=== PATIENT | female | born 1940 | race Caucasian/White ===

== ENCOUNTER 2025-02-15 11:18 | Emergency (ER) | payer MEDICARE, OTHER ==
[~2025-02-15] VITALS: Ht 160 cm; Wt 47.7 kg
--- NOTE | 2025-02-15 12:03 | ED.PDOC ---
Musculoskeletal HPI Comments 84-year-old female presents here status post fall. Patient states she was standing on a food tray stand and fell backwards. She states she has a known history of balance issues and falls perpetually. Was not dizzy. Denies any chest pain or shortness of breath. She did not lose consciousness. She is not on blood thinners. She reports mild headache but states that started before the fall due to sinusitis use currently being treated for. Denies any new headache from the fall. Denies any neck or back pain. She does state however since the fall she has been unable to bear weight on her left leg. She states when she tries to take a step she is unable to do so and collapses down. Denies pain to that left side. Denies any fever or chills. No recent cough cold runny nose. Patient lives with her niece and calvin hopkins who has a crane helper. Chief Complaint: Fall Injury Time Seen by MD: 11:36 Reviewed Notes: Nurses Notes, Medications, Allergies Allergies: Coded Allergies: NO KNOWN ALLERGIES (Unverified , 02/15/25) Mode of Arrival: Wheelchair Past Medical History Past Medical History (Other): Dementia, glaucoma hypertension Social History Smoker: Non-Smoker Alcohol: Denies ETOH Use Drugs: Denies Drug Use Lives In: Home All Other Systems: Reviewed and Negative Physical Exam General Appearance: No Apparent Distress, Normal, Thin HEENT: Normal ENT Inspection, Pharynx Normal, TMs Normal Neck: Full Range of Motion, Non-Tender, Normal, Normal Inspection Respiratory: Chest Non-Tender, Lungs Clear, No Accessory Muscle Use, No Respiratory Distress, Normal Breath Sounds Cardiovascular: No Edema, No JVD, No Murmur, No Gallop, Normal Peripheral Pulses, Regular Rate/Rhythm Breast Exam: Deferred Gastrointestinal: No Organomegaly, Non Tender, No Pulsatile Mass, Normal Bowel Sounds, Soft Genitalia: Deferred Pelvic: Deferred Rectal: Deferred Extremities: Decreased range of motion, No calf tenderness, Normal capillary refill, Normal inspection, Other (No deformity visualized. Nontender to left hip. However patient is unable to stand to bear weight. Sitting in wheelchair) Musculoskeletal : Apperance: Normal Neurologic: Alert, No Motor Deficits, Normal Affect, Normal Mood, No Sensory Deficits Cerebellar Function: Normal Reflexes: Normal Skin: Dry, Normal Color, Warm Lymphatic: No Adenopathy Was a procedure done? Was a procedure done?: No Differential Diagnosis EXT Differential Diagnosis: Fracture, Sprain, Dislocation, Contusion, Strain, Neurovascular injury Other Differential Diagnosis Intracranial hemorrhage, electrolyte abnormality, UTI X-Ray, Labs, Meds, VS Vital Signs Date Time Temp Pulse Resp B/P (MAP) Pulse Ox O2 Delivery O2 Flow Rate FiO2 02/15/25 13:59 98.2 88 18 124/62 (82) 99 98.2 02/15/25 13:59 88 18 99 Room Air 02/15/25 11:20 97.8 88 16 124/51 (75) 97 97.8 Lab Test 02/15/25 12:50 Range/Units White Blood Count 9.7 4.4-10.8 10^3/uL Red Blood Count 4.18 4.0-5.20 10^6/uL Hemoglobin 12.5 12.2-16.2 g/dL Hematocrit 37.5 36.0-46.0 % Mean Corpuscular Volume 89.7 80.0-100.0 fL Mean Corpuscular Hemoglobin 30.0 28.0-32.0 pg Mean Corpuscular Hemoglobin Concent 33.5 32.0-36.0 g/dL Red Cell Distribution Width 13.7 11.8-14.3 % Platelet Count 444 140-450 10^3/uL Mean Platelet Volume 7.8 6.9-10.8 fL Neutrophils (%) (Auto) 79.2 37.0-80.0 % Lymphocytes (%) (Auto) 14.5 10.0-50.0 % Monocytes (%) (Auto) 5.1 0.0-12.0 % Eosinophils (%) (Auto) 0.8 0.0-7.0 % Basophils (%) (Auto) 0.4 0.0-2.0 % Neutrophils # (Auto) 7.6 1.6-8.6 10 ^3/uL Lymphocytes # (Auto) 1.4 0.4-5.4 10 ^3/uL Monocytes # (Auto) 0.5 0-1.3 10 ^3/uL Eosinophils # (Auto) 0.1 0-0.8 10 ^3/uL Basophils # (Auto) 0 0-0.2 10 ^3/uL Nucleated Red Blood Cells 0.0 % Sodium Level 141 136-145 mmol/L Potassium Level 4.2 3.5-5.1 mmol/L Chloride Level 107 98-107 mmol/L Carbon Dioxide Level 25 20-31 mmol/L Anion Gap 9 5-15 Blood Urea Nitrogen 20 9-23 mg/dL Creatinine 1.13 H 0.550-1.02 mg/dL Glomerular Filtration Rate Calc 48 >90 mL/min BUN/Creatinine Ratio 17.7 10.0-20.0 Serum Glucose 92 74-106 mg/dL Calcium Level 10.0 8.7-10.4 mg/dL [place] [id number] Ph: [phone] DIAGNOSTIC IMAGING Diagnostic Imaging Report : [id number] Signed PATIENT: LAXMI REVELES ACCT: [id number] UNIT: [id number] : 1940 LOC: ER ROOM / BED: / AGE / SEX: 84 / F ADM STATUS: REG ER SERVICE [id number] ORDERING PHYSICIAN: MARSHALL OSBORNE MD PROCEDURE(s): LFEM - L FEMUR XRAY REASON: Rule out fracture ORDER NUMBER(s): [id number], ACCESSION NUMBER(s): [id number] Indication: Rule out fracture Technique: XY L FEMUR XRAY, XY L HIP COMPLETE XRAYXY Comparison: None FINDINGS/IMPRESSION: Possible fracture of the left femur greater trochanter / intertrochanteric region. Recommend CT of the left hip to evaluate. Severe degenerative changes of the left knee. Left knee chondrocalcinosis. Moderate degenerate changes bilateral hips. Severe lower lumbar degenerative disc disease and sclerotic changes. Correlate to exclude osteoblastic metastases. Moderate bilateral sacroiliac degenerative joint disease. Atherosclerotic disease. ATED BY: CELIA PIZANO MD DICTATED DATE/TIME: 02/15/25 1302 SIGNED BY: CELIA PIZANO MD SIGNED DATE/TIME: 02/15/25 1302 CC: 84-year-old female here status post fall. She states she has a history of frequent falls as she has a history of unbalance. Considered possible intracranial hemorrhage however I doubt at this time as she denies any headache, no nausea no new headache. X-ray of the left hip and left femur has been ordered including a CT of the hip as I suspect there may be a small fracture. X-ray demonstrates possible fracture of the left femur greater trochanteric/intertrochanteric region. CT hip does not demonstrate fracture. However patient is unable to bear weight so I suspect that are likely has a small fracture. At this time hospitalist team has been contacted for admission and potentially orthopedic eval Time of 1ST Reevaluation: 12:14 Reevaluation 1ST: Unchanged Patient Education/Counseling: Diagnosis, Treatment Family Education/Counseling: No Family Present Departure 1 Departure Time of Disposition: 14:45 Impression: Primary Impression: Femur fracture, left Qualified Codes: S72.92XA - Unspecified fracture of left femur, initial encounter for closed fracture Disposition: ADMITTED INPATIENT Condition: Stable Critical Care Note Critical Care Time?: No Stability Stability form required: No Heart Score Heart Score: Heart Score Response (Comments) Value History N/A 0 EKG N/A 0 Age N/A 0 Risk Factors N/A 0 Troponin N/A 0 Total 0 MARSHALL OSBORNE MD Feb 15, 2025 12:03
--- NOTE | 2025-02-15 12:47 | DVH ---
EXAM: CT CT L HIP WITH OUT CONTRAST HISTORY: Rule out fracture COMPARISON: None TECHNIQUE: Noncontrast axial CT images of the left hip were performed. Sagittal and coronal reformatt ed images were obtained. This CT exam was performed using one or more of the following dose reduction techniques: Automated exposure control, adjustment of the mA and/or kV according to patient size, or use of iterative reconstruction technique. Radiation Dose Information: CT Dose: CTDI volume is 7.14 mGy. Dose-length product is 182.05 mGy*cm. FINDINGS: No acute fracture is identified about the left hip. [id number] osteoarthrosis of the left hip j oint. IMPRESSION: 1. No acute fracture of the left hip. 2. [id number]-[id number] osteoarthrosis of the left hip
--- NOTE | 2025-02-15 13:04 | DVH ---
Indication: Rule out fracture Technique: XY L HIP COMPLETE XRAYXY Comparison: None FINDINGS/IMPRESSION: Possible fracture of the left femur greater trochanter / intertrochanteric region. Recommend CT of t he left hip to evaluate. Severe degenerative changes of the left knee. Left knee chondrocalcinosis. Moderate degenerate changes bilateral hips. Severe lower lumbar degenerative disc disease and sclerotic changes. Correlate to exclude osteoblasti c metastases. Moderate bilateral sacroiliac degenerative joint disease. Atherosclerotic disease.
--- NOTE | 2025-02-15 13:04 | DVH ---
Indication: Rule out fracture Technique: XY L FEMUR XRAY, XY L HIP COMPLETE XRAYXY Comparison: None FINDINGS/IMPRESSION: Possible fracture of the left femur greater trochanter / intertrochanteric region. Recommend CT of t he left hip to evaluate. Severe degenerative changes of the left knee. Left knee chondrocalcinosis. Moderate degenerate changes bilateral hips. Severe lower lumbar degenerative disc disease and sclerotic changes. Correlate to exclude osteoblasti c metastases. Moderate bilateral sacroiliac degenerative joint disease. Atherosclerotic disease.
[2025-02-15 13:24] LABS: Hematocrit 37.5 % (36.0-46.0); Hemoglobin 12.5 g/dL (12.2-16.2); Mean Corpuscular Hemoglobin 30.0 pg (28.0-32.0); Mean Corpuscular Volume 89.7 fL (80.0-100.0); Nucleated Red Blood Cells % 0.0 %
[2025-02-15 13:59] VITALS: BP 124/62; PULSE 88; RESP 18; TEMP 98.2; O2SAT 99
[2025-02-15 14:11] LABS: Chloride 107 mmol/L (98-107); Potassium 4.2 mmol/L (3.5-5.1); Sodium 141 mmol/L (136-145)
[2025-02-15 14:12] LABS: Anion Gap 9 (5-15); Carbon Dioxide 25 mmol/L (20-31)
[2025-02-15 14:13] LABS: Calcium 10.0 mg/dL (8.7-10.4)
[2025-02-15 14:17] LABS: BUN/Creatinine Ratio 17.7 (10.0-20.0); Blood Urea Nitrogen 20 mg/dL (9-23); Glucose 92 mg/dL (74-106)
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
== END 2025-02-15 15:16 | disposition left against medical advice (07) ==
LOC: ER 11:18
DX: S72.8X2A Other fracture of left femur, initial encounter for closed fracture (principal); I10 Essential (primary) hypertension; F03.90 Unspecified dementia, unspecified severity, without behavioral disturbance, psychotic disturbance, mood disturbance, and anxiety; H40.9 Unspecified glaucoma; W18.39XA Other fall on same level, initial encounter; Y93.89 Activity, other specified; Y92.89 Other specified places as the place of occurrence of the external cause; Y99.8 Other external cause status
CPT/HCPCS: 36415; 73502; 73700; 80048; 85025

== ENCOUNTER 2025-02-18 09:00 | Inpatient (IN) | payer MEDICARE ==
[~2025-02-18] VITALS: Ht 162.6 cm; Wt 50.0 kg
--- NOTE | 2025-02-18 09:44 | ED.PDOC ---
Lindsey. trauma (HPI) HPI Comments 84 y/o F, presents to the ED for CC of s/p fall injury. Patient states, that she suffered a fall approximately x1 week ago on Monday (02/09/25) and has since, been unable to bear weight onto her left side. Patient reports, being seen at [facility] on Monday (02/15/25) and all imagining coming back unremarkable then being admitted for a further testing; ultimately patient endorsed leaving AMA. Patient denies any pain, numbness, or tingling. No other symptoms or modifying factors present at this time. Chief Complaint: Fall Injury Time Seen by MD: 09:30 Primary Care Provider: Nathen Nunn notes: Nurses Notes, Medications, Allergies Allergies: Coded Allergies: NO KNOWN ALLERGIES (Unverified , 02/15/25) Information Source: Patient Mode of Arrival: Wheelchair Severity: Moderate Timing: Days Duration: Since onset Prehospital treatment: None Location: (L) Hip, (L) Leg Location of laceration: None Mechanism: Fall Associated signs and symtoms: None Past Medical History PAST MEDICAL HISTORY: Denies Surgical History: Denies all surgeries CLINICAL PHARMACIST History: Denies all CLINICAL PHARMACIST Hx Family History Family History: Unknown Social History Smoker: Non-Smoker Alcohol: Denies ETOH Use Drugs: Denies Drug Use Lives In: Home Constitutional: denies: chills, diaphoresis, fatigue, fever, malaise, sweats, weakness, others EENTM: denies: blurred vision, double vision, ear bleeding, ear discharge, ear drainage, ear pain, ear ringing, eye pain, eye redness, hearing loss, mouth pain, mouth swelling, nasal discharge, nose bleeding, nose congestion, nose pain, photophobia, tearing, throat pain, throat swelling, voice changes, others Respiratory: denies: cough, hemoptysis, orthopnea, SOB at rest, shortness of breath, SOB with excertion, stridor, wheezing, others Cardiovascular: denies: chest pain, dizzy spells, diaphoresis, Dyspnea on exertion, edema, irregular heart beat, left arm pain, lightheadedness, palpitations, PND, syncope, others Gastrointestinal: denies: abdomen distended, abdominal pain, blood streaked bowels, constipated, diarrhea, dysphagia, difficulty swallowing, hematemesis, melena, nausea, poor appetite, poor fluid intake, rectal bleeding, rectal pain, vomiting, others Genitourinary: denies: abnormal vagina bleeding, burning, dyspareunia, dysuria, flank pain, frequency, hematuria, incontinence, pain, , vagina discharge, urgency, others Neurological: denies: dizziness, fainting, headache, left sided numbness, left sided weakness, numbness, paresthesia, pre-existing deficit, right sided numbness, right sided weakness, seizure, speech problems, tingling, tremors, weakness, others Musculoskeletal: denies: back pain, gout, joint pain, joint swelling, muscle pain, muscle stiffness, neck pain, others Integumetry: denies: bruises, change in color, change in hair/nails, dryness, laceration, lesions, lumps, rash, wounds, others Allergic/Immunocompromised: denies: Difficulty Healing, Frequent Infections, Hives, Itching, others Hematologic/Lymphatic: denies: anemia, blood clots, easy bleeding, easy bruising, swollen glands, others Endocrine: denies: excessive hunger, excessive sweating, excessive thirst, excessive urination, flushing, intolerance to cold, intolerance to heat, unexplained weight gain, unexplained weight loss, others Psychiatric: denies: anxiety, bipolar disorder, depression, hopeless, panic disorder, schizophrenia, sleepless, suicidal, others All Other Systems: Reviewed and Negative Physical Exam General Appearance: No Apparent Distress, Normal HEENT: Normal ENT Inspection, Pharynx Normal, TMs Normal Neck: Full Range of Motion, Non-Tender, Normal, Normal Inspection Respiratory: Chest Non-Tender, Lungs Clear, No Accessory Muscle Use, No Respiratory Distress, Normal Breath Sounds Cardiovascular: No Edema, No Murmur, No Gallop, Normal Peripheral Pulses, Regular Rate/Rhythm Breast Exam: Deferred Gastrointestinal: No Organomegaly, Non Tender, No Pulsatile Mass, Normal Bowel Sounds, Soft Genitalia: Deferred Pelvic: Deferred Rectal: Deferred Extremities: No calf tenderness, Normal capillary refill, Normal inspection, Normal range of motion, Non-tender, No pedal edema Musculoskeletal : Apperance: Normal Neurologic: Alert, subscription crew leader II-XII nml as Tested, No Motor Deficits, Normal Affect, Normal Mood, No Sensory Deficits Cerebellar Function: Normal Reflexes: Normal Skin: Dry, Normal Color, Warm Lymphatic: No Adenopathy Was a procedure done? Was a procedure done?: No Differential Diagnosis Multiple Trauma: Fractures X-Ray, Labs, Meds, VS Vital Signs Date Time Temp Pulse Resp B/P (MAP) Pulse Ox O2 Delivery O2 Flow Rate FiO2 02/18/25 09:56 97.7 63 16 115/68 (84) 96 97.7 02/18/25 09:56 68 16 96 Room Air 02/18/25 09:20 98.8 83 16 133/76 (95) 96 98.8 [place] [address] Ph: [phone] DIAGNOSTIC IMAGING Diagnostic Imaging Report : [id number] Signed PATIENT: LAXMI REVELESCCT: [id number] UNIT: [id number] : 1940 LOC: ER ROOM / BED: / AGE / SEX: 84 / F ADM STATUS: REG ER SERVICE [id number] ORDERING PHYSICIAN: VICKY YADAV MD PROCEDURE(s): LHIP1 - L HIP 1V XRAY REASON: unable to bare weight ORDER NUMBER(s): [id number], ACCESSION NUMBER(s): [id number] CLINICAL INDICATION: Pain TECHNIQUE: 1 radiographic views of the left hip were obtained. Comparison: 02/15/2025 FINDINGS/IMPRESSION: There is no evidence of acute fracture or dislocation. Moderate osteoarthrosis of the left femoroacetabular joint. ATED BY: KIMMIE MENDEZ MD DICTATED DATE/TIME: 02/18/25 1023 SIGNED BY: KIMMIE MENDEZ MD SIGNED DATE/TIME: 02/18/25 1023 CC: Time of 1ST Reevaluation: 10:00 Reevaluation 1ST: Unchanged Patient Education/Counseling: Diagnosis, Treatment Family Education/Counseling: No Family Present Departure 1 Departure Time of Disposition: 12:52 (Patient was recently seen here with left hip pain inability to bear weight. Patient had recent CT scan which was negative. Patient can follow up and ambulate. We will admit patient for further workup and expert consultation) Impression: Primary Impression: Left hip pain Additional Impression: Inability to bear weight Disposition: ADMITTED INPATIENT Admit to: Med Surg Condition: Serious Critical Care Note Critical Care Time?: No Stability Stability form required: No Heart Score Heart Score: Heart Score Response (Comments) Value History N/A 0 EKG N/A 0 Age N/A 0 Risk Factors N/A 0 Troponin N/A 0 Total 0 I personally scribed for VICKY YADAV MD ([email or web address]) on 02/18/25 at 09:44. Electronically submitted by Shelly Santiago ([email or web address]). I personally scribed for VICKY YADAV MD ([email or web address]) on 02/18/25 at 11:33. Electronically submitted by Shelly Santiago ([email or web address]). VICKY YADAV MD Feb 18, 2025 09:44
--- NOTE | 2025-02-18 10:26 | DVH ---
CLINICAL INDICATION: Pain TECHNIQUE: 1 radiographic views of the left hip were obtained. Comparison: 02/15/2025 FINDINGS/IMPRESSION: There is no evidence of acute fracture or dislocation. Moderate osteoarthrosis of the left femoroacetabular joint.
[2025-02-18 13:28] LABS: Nucleated Red Blood Cells % 0.0 %
[2025-02-18 13:29] LABS: Hematocrit 37.7 % (36.0-46.0); Hemoglobin 12.8 g/dL (12.2-16.2); Mean Corpuscular Hemoglobin 30.4 pg (28.0-32.0); Mean Corpuscular Volume 89.8 fL (80.0-100.0)
[2025-02-18 13:35] LABS: Chloride 106 mmol/L (98-107); Potassium 4.4 mmol/L (3.5-5.1); Sodium 140 mmol/L (136-145)
[2025-02-18 13:36] LABS: Anion Gap 8 (5-15); Carbon Dioxide 26 mmol/L (20-31)
[2025-02-18 13:37] LABS: Calcium 9.5 mg/dL (8.7-10.4)
[2025-02-18 13:41] LABS: BUN/Creatinine Ratio 21.7 (10.0-20.0); Glucose 96 mg/dL (74-106)
[2025-02-18 13:42] LABS: Blood Urea Nitrogen 23 mg/dL (9-23)
[2025-02-18] MEDS ORDERED: NITROGLYCERIN 0.4 MG SL TAB SL PRN (15:30)
[2025-02-18] MEDS ORDERED: DOCUSATE SOD 100 MG CAP PO PRN (15:30)
[2025-02-18] MEDS ORDERED: ONDANSETRON HCL 4 MG/2 ML VIAL IV PRN (15:30)
[2025-02-18] MEDS ORDERED: MORPHINE SULFATE INJ 2 MG/ml SYRG IV PRN (15:30)
--- NOTE | 2025-02-18 16:27 | DVH ---
CT LS SPINE WO CONTRAST Indication: eval and low back pain EXAM DATE: 02/18/2025 03:17 PM COMPARISON: None TECHNIQUE: CT of the lumbar spine without intravenous contrast. RADIATION DOSE: CTDIvol: 286.55 mGy, DLP: 18.98 mGy*cm FINDINGS: The lumbar vertebral body heights are maintained. Severe multilevel disc space narrowing and vacuum disc phenomena. Ankylosis of the L5 and S1 vertebral bodies. Lumbar dextroscoliosis. Aortic atherosclerotic disease and tortuosity. Colonic diverticular disease. At L1-2, there is moderate right neural foraminal stenosis. At L2-3, there is moderate bilateral neural foraminal stenosis. At L3-4 there is moderate to severe left and ozab-id-[id number] right neural foraminal stenosis. Mild-t o-moderate spinal canal stenosis. At L4-5, there is moderate to severe bilateral neural foraminal stenosis.m moderate spinal canal sten osis. At L5-S1 moderate to severe left and moderate right neural foraminal stenosis. Mild spinal canal sten osis. IMPRESSION: Severe lumbar degenerative disc disease and lumbar dextroscoliosis. Multilevel neural foraminal and spinal canal stenosis as described above which can be further charact erized with MRI lumbar spine. 5
--- NOTE | 2025-02-18 16:44 | DVHHP2 ---
History of Present Illness Reason for Visit: hip pain History of Present Illness 84 yr old female pmh dementia, glaucoma, and hypertension who presents to the ED with inability to bear weight on the left leg since her fall on 02/15/25. at the time of the fall "Patient states that she was standing at home and was closing up a food tray when she fell backwards and hit the back of her head without losing any consciousness. She states that she lives at home with her niece who is her caregiver". According to patient patient states despite being seen and treated here on February 15, 2025 she continues to have persistent pain in her left hip she states she had a fall recently last one was two days ago. Patient s tates she is not able to bear weight on her leg. Patient denies any chest pain no shortness with the breath. She states she is voiding without difficulty no issues with having bowel movements. When evaluating patient's labs and imaging CBC was unremarkable CMP unremarkable just shows mild elevation creatinine x- rays of the hip shows osteoarthritis reviewed CT scan from February 15, 2025 which was no fracture just shows arthritis it appears on that time patient also left AMA. With these findings we will admit and ask for Physical therapy evaluation we will add CT scan of the L-spine since patient with the pain in her left groin area. Patient to be admitted for pain management Past Medical History Dementia glaucoma htn Past Surgical History See HPI above Family History Reviewed, non-contributory to the management of this case. Past Social History The patient lives at home, denies smoking, alcohol or illicit drugs abuse. Review of Systems Constitutional: No: Fever, Chills, Sweats, Weakness, Malaise, Other Eyes: No: Pain, Vision change, Conjunctivae inflammation, Eyelid inflammation, Other, Redness ENT: No: Ear pain, Ear discharge, Nose pain, Nose discharge, Nose congestion, Mouth pain, Mouth swelling, Throat pain, Throat swelling, Other Respiratory: No: Cough, Dry, Shortness of breath, SOB with excertion, Wheezing, Hemoptysis, Pleuritic Pain, Sputum, Wheezing, Other Cardiovascular: No: Chest Pain, Palpitations, Orthopnea, Paroxysmal Noc. Dyspnea, Edema, Lt Headedness, Other Gastrointestinal: No: Nausea, Vomiting, Abdominal Pain, Diarrhea, Constipation, Melena, Hematochezia, Other Genitourinary: No Dysuria, No Frequency, No Incontinence, No Hematuria, No Retention, No Other Musculoskeletal: other (left hip pain); No: neck pain, shoulder pain, arm pain, back pain, hand pain, leg pain, foot pain Skin: No: Rash, Lesions, Jaundice, Bruising, Other Neurological: Weakness; No: Numbness, Incoordination, Change in speech, Confusion, Seizures, Other Allergies: Coded Allergies: NO KNOWN ALLERGIES (Unverified , 02/15/25) Medications Current Medications Medications Dose Ordered Sig/Starla Route Start Time Stop Time Status Last Admin Dose Admin Ondansetron HCl 4 mg Q4HP PRN IV 02/18/25 15:30 Docusate Sodium 100 mg BIDPRN PRN PO 02/18/25 15:30 Enoxaparin Sodium 40 mg DAILY SC 02/19/25 10:00 Morphine Sulfate 2 mg Q4HPRN PRN IV 02/18/25 15:30 Nitroglycerin 0.4 mg Q5MINP PRN SL 02/18/25 15:30 Exam Vital Signs Vital Signs Date Time Temp Pulse Resp B/P (MAP) Pulse Ox O2 Delivery O2 Flow Rate FiO2 02/18/25 09:56 97.7 63 16 115/68 (84) 96 97.7 02/18/25 09:56 Room Air General Appearance: Alert, Oriented X3, Cooperative, No acute distress HEENT: Atraumatic, PERRLA, EOMI, Mucous membr. moist/pink Respiratory: Clear to auscultation, Normal air movement Cardiovascular: Regular rate, Normal S1, Normal S2, No murmurs Abdominal: Normal bowel sounds, Soft, No tenderness, No hepatospenomegaly, No masses Extremities: No clubbing, No cyanosis, No edema, Normal pulses, No tenderness/swelling Skin: No rashes, No breakdown, No significant lesion Neuro: Normal speech, Strength at 5/5 X4 ext, Normal tone, Sensation intact, Cranial nerves 3-12 NL Psych/Mental Status: Mental status NL, Mood NL Labs/Xrays ct hip no fracture xray of hip no fx I reviewed labs, imaging CT scan abdomen pelvis, EKG and all diagnostic studies on this patient from ED records and the medical chart Labs Test 02/18/25 13:18 Range/Units White Blood Count 7.9 4.4-10.8 10^3/uL Red Blood Count 4.20 4.0-5.20 10^6/uL Hemoglobin 12.8 12.2-16.2 g/dL Hematocrit 37.7 36.0-46.0 % Mean Corpuscular Volume 89.8 80.0-100.0 fL Mean Corpuscular Hemoglobin 30.4 28.0-32.0 pg Mean Corpuscular Hemoglobin Concent 33.9 32.0-36.0 g/dL Red Cell Distribution Width 13.5 11.8-14.3 % Platelet Count 476 H 140-450 10^3/uL Mean Platelet Volume 7.6 6.9-10.8 fL Neutrophils (%) (Auto) 77.2 37.0-80.0 % Lymphocytes (%) (Auto) 17.1 10.0-50.0 % Monocytes (%) (Auto) 4.2 0.0-12.0 % Eosinophils (%) (Auto) 0.7 0.0-7.0 % Basophils (%) (Auto) 0.8 0.0-2.0 % Neutrophils # (Auto) 6.1 1.6-8.6 10 ^3/uL Lymphocytes # (Auto) 1.4 0.4-5.4 10 ^3/uL Monocytes # (Auto) 0.3 0-1.3 10 ^3/uL Eosinophils # (Auto) 0.1 0-0.8 10 ^3/uL Basophils # (Auto) 0.1 0-0.2 10 ^3/uL Nucleated Red Blood Cells 0.0 % Sodium Level 140 136-145 mmol/L Potassium Level 4.4 3.5-5.1 mmol/L Chloride Level 106 98-107 mmol/L Carbon Dioxide Level 26 20-31 mmol/L Anion Gap 8 5-15 Blood Urea Nitrogen 23 9-23 mg/dL Creatinine 1.06 H 0.550-1.02 mg/dL Glomerular Filtration Rate Calc 52 >90 mL/min BUN/Creatinine Ratio 21.7 H 10.0-20.0 Serum Glucose 96 74-106 mg/dL Calcium Level 9.5 8.7-10.4 mg/dL SEPSIS Sepsis Screen Date sepsis recognized/suspect: Feb 18, 2025 Time Sepsis recognized/suspect: 919 Recent Procedure: No On Antibiotic Therapy: No Respiratory Rate >20: No Heart Rate >90: No Temp<36 C (96.8 F) or >38.3 C: No SBP <90 or MAP <65 mmHG: No New Acute Mental Status Change: No Is the patient on CPAP, BIPAP,: No Physician Orders L Hip 1v Xray (02/18/25 09:51) Ls Spine Wo Contrast (02/18/25 15:13) Admit (02/18/25 15:16) Allergies (02/18/25 15:16) Code Status (02/18/25 15:16) Ondansetron Hcl (Zofran) (02/18/25 15:30) Docusate Sodium Capsule (Colace Capsule) (02/18/25 15:30) Enoxaparin Sodium (Lovenox) (02/19/25 10:00) Fall Risk Precautions In Place QSHIFT (02/18/25 15:16) Complete Blood Count (02/19/25 04:00) Comprehensive Metabolic Panel (02/19/25 04:00) Pt Request For Service (02/18/25 15:16) Condition: Stable (02/18/25 15:16) BRP (02/18/25 15:16) Morphine Sulfate Injection (02/18/25 15:30) Sequential Compression Device (02/18/25 ) Nitroglycerin Sublingual (Ntrostat Subli (02/18/25 15:30) Stat Ekg For Chest Pain (02/18/25 15:16) Notify Md Of Changes From Base (02/18/25 15:16) Automobile Assembly Supervisor For 24 Hours (02/18/25 15:16) Emergency Dysrhythmia Protocol (02/18/25 15:16) Rhythm Strips Once Every Shift (02/18/25 15:16) Oxygen By Nasal Cannula (02/18/25 15:16) Vital Signs Date Time Temp Pulse Resp B/P (MAP) Pulse Ox O2 Delivery O2 Flow Rate FiO2 02/18/25 09:56 97.7 63 16 115/68 (84) 96 97.7 02/18/25 09:56 68 16 96 Room Air 02/18/25 09:20 98.8 83 16 133/76 (95) 96 98.8 Laboratory Tests Test 02/18/25 13:18 White Blood Count 7.9 10^3/uL (4.4-10.8) Assessment/Plan Assessment/Plan acute intractable left hip pain ct scan reviewed of hip from 02/15/25 negative for fx , repeat xray of hip negative ordered l spine ct pending results ordered morphine as needed for pain ordered PT consult fu results chronic problems glaucoma htn anxiety fen/ppx diet ivf hl scd plan admit to medicine Plan discussed with: Patient My Orders Orders - JAX GODWIN DNP Procedure Category Date Status Time Ls Spine Wo Contrast CT 02/18/25 Taken 15:13 Admit ADMIT 02/18/25 Transmitted 15:16 Allergies YASHIRA 02/18/25 In Process 15:16 Code Status CODE 02/18/25 Transmitted 15:16 Ondansetron Hcl PHA 02/18/25 In Process (Zofran) 15:30 Docusate Sodium PHA 02/18/25 In Process Capsule (Colace 15:30 Enoxaparin Sodium PHA 02/19/25 In Process (Lovenox) 10:00 Fall Risk Precautions YASHIRA 02/18/[address] 15:16 Complete Blood Count LAB 02/19/25 Verified 04:00 Comprehensive LAB 02/19/25 Verified Metabolic Panel 04:00 Pt Request For Service PT 02/18/25 Logged 15:16 Condition: Stable YASHIRA 02/18/25 In Process 15:16 BRP YASHIRA 02/18/25 In Process 15:16 Morphine Sulfate PHA 02/18/25 In Process Injection 15:30 Sequential YASHIRA 02/18/25 In Process Compression Device Nitroglycerin PHA 02/18/25 In Process Sublingual (Ntrostat 15:30 Stat Ekg For Chest YASHIRA 02/18/25 In Process Pain 15:16 Notify Md Of Changes YASHIRA 02/18/25 In Process From Base 15:16 Automobile Assembly Supervisor For YASHIRA 02/18/25 In Process 24 Hours 15:16 Emergency Dysrhythmia YASHIRA 02/18/25 In Process Protocol 15:16 Rhythm Strips Once YASHIRA 02/18/25 In Process Every Shift 15:16 Oxygen By Nasal RT 02/18/25 Transmitted Cannula 15:16 Date of Service: Feb 18, 2025 Billing Provider: JAX GODWIN DNP Common Visit Codes: [id number] INP/OBS CARE (HIGH) JAX GODWIN DNP Feb 18, 2025 16:44
[2025-02-18 18:07] VITALS: BP 135/63; PULSE 82; RESP 20; TEMP 97.8; O2SAT 97
[2025-02-18 18:23] VITALS: PULSE 82; RESP 20; O2SAT 97
[2025-02-18] MEDS ORDERED: LOSA-535 PO (18:30)
[2025-02-18] MEDS ORDERED: AMLO1TAB22 PO (18:30)
[2025-02-18] MEDS ORDERED: DORZ2SOL18 EACHEYE (18:30)
[2025-02-18] MEDS ORDERED: LATA0.008 EACHEYE (18:30)
[2025-02-18] MEDS ORDERED: DIA5T PO (18:30)
[2025-02-18 20:00] VITALS: PULSE 71; RESP 18; O2SAT 99
[2025-02-18 21:00] VITALS: BP 134/64; PULSE 71; RESP 18; TEMP 97.9; O2SAT 99
[2025-02-18] MEDS: TEMAZEPAM 15 MG CAP PO ONE (21:30)
[2025-02-19] VITALS (8 sets, daily range): BP systolic 115–144; BP diastolic 50–83; PULSE 70–90; RESP 17–20; TEMP 97.7–98.4; O2SAT 95–98
[2025-02-19 06:08] LABS: Hematocrit 34.4 % (36.0-46.0); Hemoglobin 11.6 g/dL (12.2-16.2); Mean Corpuscular Hemoglobin 30.2 pg (28.0-32.0); Mean Corpuscular Volume 89.6 fL (80.0-100.0); Nucleated Red Blood Cells % 0.0 %
[2025-02-19 06:31] LABS: Alanine Aminotransferase 15 U/L (7-40); Albumin 3.8 g/dL (3.2-4.8); Alkaline Phosphatase 71 U/L (46-116); Anion Gap 9 (5-15); BUN/Creatinine Ratio 23.6 (10.0-20.0); Bilirubin, Total 0.2 mg/dL (0.2-1.0); Blood Urea Nitrogen 25 mg/dL (9-23); Calcium 9.5 mg/dL (8.7-10.4); Carbon Dioxide 25 mmol/L (20-31); Chloride 109 mmol/L (98-107); Glucose 79 mg/dL (74-106); Potassium 4.4 mmol/L (3.5-5.1); Sodium 143 mmol/L (136-145); Total Protein 6.4 g/dL (5.7-8.2)
[2025-02-19] MEDS: ENOXAPARIN SOD 40 MG/0.4 ML SYRINGE SC SCH (09:11)
--- NOTE | 2025-02-19 13:45 | DVHPN2 ---
Reviewed: Care Plan, H&P, Labs, Medications, Previous Orders, Radiology Changes from previous H/P or p: No Changes Eyes: No Pain, No Vision change, No Conjunctivae inflammation, No Eyelid inflammation, No Other, No Redness ENT: No Ear pain, No Ear discharge, No Nose pain, No Nose discharge, No Nose congestion, No Mouth pain, No Mouth swelling, No Throat pain, No Throat swelling, No Other Cardiovascular: No Chest Pain, No Palpitations, No Orthopnea, No Paroxysmal Noc. Dyspnea, No Edema, No Lt Headedness, No Other Respiratory: No Cough, No Dry, No Shortness of breath, No SOB with excertion, No Wheezing, No Hemoptysis, No Pleuritic Pain, No Sputum, No Other Gastrointestinal: No Nausea, No Vomiting, No Abdominal Pain, No Diarrhea, No Constipation, No Melena, No Hematochezia, No Other Genitourinary: No Dysuria, No Frequency, No Incontinence, No Hematuria, No Retention, No Other Musculoskeletal: other (left hip pain); No neck pain, No shoulder pain, No arm pain, No back pain, No hand pain, No leg pain, No foot pain Skin: No Rash, No Lesions, No Jaundice, No Bruising, No Other Objective Vitals Vital Signs Date Time Temp Pulse Resp B/P (MAP) Pulse Ox O2 Delivery O2 Flow Rate FiO2 02/19/25 12:41 97.9 77 18 144/83 (103) 97 97.9 02/19/25 08:00 Room Air* 0 21 Intake/Output Intake and Output 02/19/25 07:00 Intake Total 400 ml Balance 400 ml Intake Oral 400 ml # Voids 1 # Bowel Movements 1 Medications Current Medications Medications Dose Ordered Sig/Starla Route Start Time Stop Time Status Last Admin Dose Admin Ondansetron HCl 4 mg Q4HP PRN IV 02/18/25 15:30 Docusate Sodium 100 mg BIDPRN PRN PO 02/18/25 15:30 Enoxaparin Sodium 40 mg DAILY SC 02/19/25 10:00 Morphine Sulfate 2 mg Q4HPRN PRN IV 02/18/25 15:30 Nitroglycerin 0.4 mg Q5MINP PRN SL 02/18/25 15:30 Laboratory Results Laboratory Tests 02/19/25 05:22 Chemistry Test 02/19/25 05:22 Albumin 3.8 g/dL (3.2-4.8) Calcium Level 9.5 mg/dL (8.7-10.4) Total Protein 6.4 g/dL (5.7-8.2) LFT Test 02/19/25 05:22 Alanine Aminotransferase (ALT) 15 U/L (7-40) Alkaline Phosphatase 71 U/L (46-116) Aspartate Amino Transferase (AST) 25 U/L (13-40) Total Bilirubin 0.2 mg/dL (0.2-1.0) Labs and/or images reviewed: Labs reviewed by me, Image(s) reviewed by me Assessment/Plan Assessment/Plan Left intractable left hip pain: X-ray left hip negative, CT lumbosacral spine shows DJD changes Acute back pain Hypertension Glaucoma Anxiety Plan discussed with: Patient Date of Service: Feb 19, 2025 Billing Provider: GLENDA SMITH MD Common Visit Codes: [id number] INP/OBS CARE(HIGH) GLENDA SMITH MD Feb 19, 2025 13:45
[2025-02-20] VITALS (7 sets, daily range): BP systolic 123–145; BP diastolic 62–76; PULSE 72–88; RESP 16–22; TEMP 97.6–98; O2SAT 94–99
[2025-02-20] MEDS: IBUPROFEN 600 MG TAB PO PRN (05:15)
--- NOTE | 2025-02-20 12:47 | DVHPN2 ---
Reviewed: Care Plan, H&P, Labs, Medications, Previous Orders, Radiology Changes from previous H/P or p: No Changes Eyes: No Pain, No Vision change, No Conjunctivae inflammation, No Eyelid inflammation, No Other, No Redness ENT: No Ear pain, No Ear discharge, No Nose pain, No Nose discharge, No Nose congestion, No Mouth pain, No Mouth swelling, No Throat pain, No Throat swelling, No Other Cardiovascular: No Chest Pain, No Palpitations, No Orthopnea, No Paroxysmal Noc. Dyspnea, No Edema, No Lt Headedness, No Other Respiratory: No Cough, No Dry, No Shortness of breath, No SOB with excertion, No Wheezing, No Hemoptysis, No Pleuritic Pain, No Sputum, No Other Gastrointestinal: No Nausea, No Vomiting, No Abdominal Pain, No Diarrhea, No Constipation, No Melena, No Hematochezia, No Other Genitourinary: No Dysuria, No Frequency, No Incontinence, No Hematuria, No Retention, No Other Musculoskeletal: other (left hip pain); No neck pain, No shoulder pain, No arm pain, No back pain, No hand pain, No leg pain, No foot pain Skin: No Rash, No Lesions, No Jaundice, No Bruising, No Other Objective Vitals Vital Signs Date Time Temp Pulse Resp B/P (MAP) Pulse Ox O2 Delivery O2 Flow Rate FiO2 02/20/25 09:00 97.6 75 17 123/62 (82) 97 97.6 02/20/25 07:45 Room Air* 0 21 Intake/Output Intake and Output 02/20/25 07:00 Intake Total 1450 ml Balance 1450 ml Intake Oral 1450 ml # Voids 7 Medications Current Medications Medications Dose Ordered Sig/Starla Route Start Time Stop Time Status Last Admin Dose Admin Ondansetron HCl 4 mg Q4HP PRN IV 02/18/25 15:30 Docusate Sodium 100 mg BIDPRN PRN PO 02/18/25 15:30 Enoxaparin Sodium 40 mg DAILY SC 02/19/25 10:00 Morphine Sulfate 2 mg Q4HPRN PRN IV 02/18/25 15:30 Nitroglycerin 0.4 mg Q5MINP PRN SL 02/18/25 15:30 Ibuprofen 600 mg Q6HP PRN PO 02/19/25 16:30 02/20/25 05:15 600 MG Laboratory Results Laboratory Tests 02/19/25 05:22 Labs and/or images reviewed: Labs reviewed by me, Image(s) reviewed by me Assessment/Plan Assessment/Plan Intractable left hip pain: X-ray left hip negative, CT lumbosacral spine shows DJD changes Acute back pain Hypertension Glaucoma Anxiety: Continue home medication valium Social service consult for home health for physical therapy JIGNESH Snell at bedside Plan discussed with: Patient My Orders Orders - GLENDA SMITH MD Procedure Category Date Status Time Ibuprofen Tablet PHA 02/19/25 In Process (Motrin Tablet) 16:30 Diazepam Tablet PHA 02/20/25 In Process (Valium Tablet) 12:30 Date of Service: Feb 20, 2025 Billing Provider: GLENDA SMITH MD Common Visit Codes: [id number] INP/OBS CARE(HIGH) GLENDA SMITH MD Feb 20, 2025 12:47
[2025-02-20] MEDS: diazePAM 5 MG TAB PO ONE (12:51)
[2025-02-20] MEDS: MELATONIN 5 MG TAB PO ONE (22:04)
[2025-02-21 05:00] VITALS: BP 127/64; PULSE 69; RESP 18; TEMP 98; O2SAT 96
[2025-02-21 08:05] VITALS: RESP 18; O2SAT 98
[2025-02-21] MEDS ORDERED: NAP500T PO (11:23)
--- NOTE | 2025-02-21 11:24 | DVHDS2 ---
Discharge Summary Date of Admission Feb 18, 2025 at 15:16 Date of Discharge: Feb 21, 2025 Labs/Diagnostic Data: Laboratory Results Test 02/19/25 05:22 White Blood Count 7.5 10^3/uL (4.4-10.8) Red Blood Count 3.84 10^6/uL (4.0-5.20) Hemoglobin 11.6 g/dL (12.2-16.2) Hematocrit 34.4 % (36.0-46.0) Mean Corpuscular Volume 89.6 fL (80.0-100.0) Mean Corpuscular Hemoglobin 30.2 pg (28.0-32.0) Mean Corpuscular Hemoglobin Concent 33.7 g/dL (32.0-36.0) Red Cell Distribution Width 13.3 % (11.8-14.3) Platelet Count 405 10^3/uL (140-450) Mean Platelet Volume 7.6 fL (6.9-10.8) Neutrophils (%) (Auto) 78.6 % (37.0-80.0) Lymphocytes (%) (Auto) 14.6 % (10.0-50.0) Monocytes (%) (Auto) 4.3 % (0.0-12.0) Eosinophils (%) (Auto) 2.1 % (0.0-7.0) Basophils (%) (Auto) 0.4 % (0.0-2.0) Neutrophils # (Auto) 5.9 10 ^3/uL (1.6-8.6) Lymphocytes # (Auto) 1.1 10 ^3/uL (0.4-5.4) Monocytes # (Auto) 0.3 10 ^3/uL (0-1.3) Eosinophils # (Auto) 0.2 10 ^3/uL (0-0.8) Basophils # (Auto) 0 10 ^3/uL (0-0.2) Nucleated Red Blood Cells 0.0 % Sodium Level 143 mmol/L (136-145) Potassium Level 4.4 mmol/L (3.5-5.1) Chloride Level 109 mmol/L (98-107) Carbon Dioxide Level 25 mmol/L (20-31) Anion Gap 9 (5-15) Blood Urea Nitrogen 25 mg/dL (9-23) Creatinine 1.06 mg/dL (0.550-1.02) Glomerular Filtration Rate Calc 52 mL/min (>90) BUN/Creatinine Ratio 23.6 (10.0-20.0) Serum Glucose 79 mg/dL (74-106) Calcium Level 9.5 mg/dL (8.7-10.4) Total Bilirubin 0.2 mg/dL (0.2-1.0) Aspartate Amino Transferase (AST) 25 U/L (13-40) Alanine Aminotransferase (ALT) 15 U/L (7-40) Alkaline Phosphatase 71 U/L (46-116) Total Protein 6.4 g/dL (5.7-8.2) Albumin 3.8 g/dL (3.2-4.8) Other Laboratory Tests 02/19/25 05:22 Discharge Disposition: Home Discharge Instruct/Medications Diet: Cardiac 2g Na,low cholest Activity: No Restrictions, As Tolerated Scheduled Amlodipine Besylate (Amlodipine Besylate), 10 MG PO DAILY, (Reported) Diazepam (Valium Tablet), 1 TAB PO QPM, (Reported) Dorzolamide-Timolol (Dorzolamide Hcl/Timolol M), 1 DROP EACHEYE BID, (Reported) Latanoprost (Latanoprost), 1 DROP EACHEYE QPM, (Reported) Losartan Potassium (Losartan Potassium), 100 MG PO DAILY, (Reported) Naproxen (Naprosyn Tablet), 1 TAB PO BID Discharge Statement: "Patient was advised to return to the ER or call 911 if any headaches, dizziness, shortness of breath, chest pain, abdominal pain, bleeding, fevers, or worsening of medical condition. Patient was counseled about treatment plan, medications, possible side effects, patientverbalized understanding. All questions were answered to the best of my ability. This discharge took greater then 30 minutes in planning, reviewing documentation, counseling the patient, and discussing with other team members." ASSESSMENT ASSESSMENT Assessment Date of Service: Feb 21, 2025 Billing Provider: YESY GUERRA DO Common Visit Codes: [id number] DISCH DAY >30min YESY GUERRA DO Feb 21, 2025 11:24
[2025-02-21 12:00] VITALS: TEMP 36.7
== END 2025-02-21 16:15 | disposition home or self-care (01) | DRG 552 ==
LOC: ER 09:00 → OVERFLOW 15:16 → WEST WING 17:45
PROVIDERS: ADMIT Internal Medicine; ATTEND Internal Medicine
DX: M48.061 Spinal stenosis, lumbar region without neurogenic claudication (principal); F03.94 Unspecified dementia, unspecified severity, with anxiety; M51.369 Other intervertebral disc degeneration, lumbar region without mention of lumbar back pain or lower extremity pain; M41.86 Other forms of scoliosis, lumbar region; M25.552 Pain in left hip; M47.897 Other spondylosis, lumbosacral region; I10 Essential (primary) hypertension; H40.89 Other specified glaucoma; F41.9 Anxiety disorder, unspecified
CPT/HCPCS: 36415; 72131; 73501; 80048; 80053; 85025; 97110; 97116; 97163; 97530; G0378